=== PATIENT | male | born 1955 | race Caucasian/White ===

== ENCOUNTER 2020-04-27 19:02 | Emergency (ER) | payer MEDICARE, MEDICAID ==
--- NOTE | 2020-04-27 20:30 | EDM.PDOCBH ---
ED HPI GENERAL MEDICAL PROBLEM - General Stated Complaint: MEDICATION Time Seen by Provider: 04/27/20 20:30 Source of Information: Reports: Patient History Limitations: Reports: No Limitations - History of Present Illness INITIAL COMMENTS - FREE TEXT/NARRATIVE: 65-year-old male who reports that he has had long-standing problems with anxiety and depression and in February he reports that he has been feeling rather depressed about his medical condition begin (he has leg weakness and there was some concern that he had had a stroke but the weakness is of unclear etiology) and apparently he's been seen by a psychiatrist in [place] is initially placed on Lexapro about the middle to end of March and he reports that after one day he was feeling very agitated and shaky and that medication was stopped and then on 04/17/2020, he was placed on Zoloft and after 3 days of that medication he was feeling more agitated and was not sleeping well and he stopped that medication as well. He has been on Ativan twice daily for anxiety and he reports that that has helped his anxiety but he still feels that his anxiety is not really controlled completely and he is having trouble sleeping and has been having more and more depression. Today, he reports that he begin to thoughts of wanting to harm himself and he was concerned that he might do something to harm himself. He does not have a definite plan. But this scared him quite a bit. He comes to the emergency department from the [facility] because he wants cynthia into control his depression. He feels that he has "hit rock chanelle ttom" and he feels hopeless and lost. The thoughts of wanting to harm himself had progressively worsened through the day today. He did not do anything to harm himself today. He denies any pain at present. He rates his pain as a 0/10. He has had no fever. No nausea or vomiting. No cough or nasal congestion. No sore throat. There are no other associated signs or symptoms. There are no other modifying factors. Onset: Other (Ongoing problems with anxiety for some time and depression for 2-3 months. Feels that he has "hit rock bottom" today.) Duration: Getting Worse (2-3 months.) Location: Reports: Other (Not applicable.) Quality: Reports: Other (Not applicable.) Improves with: Reports: None Worsens with: Reports: None Context: Reports: Other (As above.) Associated Symptoms: Reports: No Other Symptoms Treatments PODIATRIST ORTHOPEDIC: Reports: Other (see below) (Nothing.) - Related Data Allergies Allergy/AdvReac Type Severity Reaction Status Date / Time No Known Allergies Allergy Verified 04/27/20 21:14 Home Meds: Home Meds LORazepam [Ativan] 0.5 mg PO BID PRN 04/27/20 [History] amLODIPine [Norvasc] 7.5 mg PO DAILY 04/27/20 [History] traZODone 50 mg PO DAILY PRN 04/27/20 [History] Past Medical History Cardiovascular History: Reports: Hypertension Genitourinary History: Reports: BPH Neurological History: Reports: Other (See Below) (Leg weakness of unclear etiology. Extensive workup has been performed and is being performed for this now.) Psychiatric History: Reports: Anxiety, Depression - Past Surgical History HEENT Surgical History: Reports: Tonsillectomy Male Surgical History: Reports: TURP-Transurethral Resection of Prostate Social & Family History - Tobacco Use Smoking Status *Q: Unknown Ever Smoked (Nonsmoker.) - Alcohol Use Alcohol Use History: Yes Alcohol Use Frequency: Rarely - Recreational Drug Use Recreational Drug Use: No - Living Situation & Occupation Living situation: Reports: Assisted Living Occupation: Disabled Social History Comment: Lives in the assisted living [facility] ED [facility] GENERAL - Review of Systems Review Of Systems: See Below Constitutional: Reports: No Symptoms HEENT: Reports: No Symptoms Respiratory: Reports: No Symptoms Cardiovascular: Reports: No Symptoms Endocrine: Reports: No Symptoms GI/Abdominal: Reports: No Symptoms : Reports: No Symptoms Musculoskeletal: Reports: No Symptoms Skin: Reports: No Symptoms Neurological: Reports: Weakness (In both legs of unclear etiology.) Psychiatric: Reports: Anxiety, Depression, Suicidal Ideation. Denies: Hallucinations Hematologic/Lymphatic: Reports: No Symptoms Immunologic: Reports: No Symptoms ED EXAM, BEHAVIORAL HEALTH - Physical Exam Exam: See Below Exam Limited By: No Limitations General Appearance: Alert, WD/WN, Anxious, Moderate Distress (Appears depressed.) Eye Exam: Bilateral Eye: EOMI, PERRL Ears: Normal External Exam, Hearing Grossly Normal Nose: Normal Inspection, Normal Mucosa, No Blood Throat/Mouth: Normal Oropharynx, Normal Voice, No Airway Compromise Head: Atraumatic, Normocephalic Neck: Normal Inspection, Supple, Non-Tender, Full Range of Motion Respiratory/Chest: No Respiratory Distress, Lungs Clear, Normal Breath Sounds, No Accessory Muscle Use, Chest Non-Tender Cardiovascular: Normal Peripheral Pulses, Regular Rate, Rhythm, No Murmur GI/Abdominal: Normal Bowel Sounds, Soft, Non-Tender, No Mass Back Exam: Normal Inspection, Full Range of Motion Extremities: Normal Inspection, Normal Range of Motion, Non-Tender, No Pedal Edema, Normal Capillary Refill Neurological: Alert, CN II-XII Intact, Normal Cognition, Oriented x 3, Other (Generalized bilateral lower extremity weakness he is able to move his legs they appear symmetric but just weak.) Psychiatric: Alert, Depressed Mood, Flat Affect, Suicidal Thoughts (But no plan.) Skin Exam: Warm, Dry, Intact, Normal color, No rash COURSE, BEHAVIORAL HEALTH COMP - Course Vital Signs: Last Vital Signs Temp 36.9 C 04/28/20 08:05 Pulse 96 04/28/20 08:05 Resp 17 04/28/20 08:05 BP 154/86 H 04/28/20 08:05 Pulse Ox 98 04/28/20 08:05 Orders, Labs, Meds: Laboratory Tests 04/27/20 04/27/20 04/27/20 Range/Units 21:35 21:35 21:35 WBC 8.6 (4.5-12.0) X10-3/uL RBC 4.94 (4.30-5.75) x10(6)uL Hgb 15.9 (13.5-17.8) g/dL Hct 46.2 (30.0-51.3) % MCV 93.6 (80-96) fL MCH 32.1 (27.7-33.6) pg MCHC 34.3 (32.2-35.4) g/dL RDW 12.1 (11.5-15.5) % Plt Count 384 H (125-369) X10(3)uL MPV 6.8 L (7.4-10.4) fL Neut % (Auto) 63.6 (46-82) % Lymph % (Auto) 24.6 (13-37) % Lawrence % (Auto) 9.1 (4-12) % Eos % (Auto) 2 (1.0-5.0) % Baso % (Auto) 1 (0-2) % Neut # (Auto) 5.5 (1.6-8.3) # Lymph # (Auto) 2.1 (0.6-5.0) # Lawrence # (Auto) 0.8 (0.0-1.3) # Eos # (Auto) 0.2 (0.0-0.8) # Baso # (Auto) 0.0 (0.0-0.2) # Sodium 137 (135-145) mmol/L Potassium 3.4 L (3.5-5.3) mmol/L Chloride 99 L (100-110) mmol/L Carbon Dioxide 31 (21-32) mmol/L BUN 13 (7-18) mg/dL Creatinine 0.8 (0.70-1.30) mg/dL Est Cr Clr Drug Dosing TNP Estimated GFR (MDRD) > 60 (>60) BUN/Creatinine Ratio 16.3 (9-20) Glucose 105 (80-116) mg/dL Calcium 9.1 (8.6-10.2) mg/dL Magnesium (1.8-2.5) mg/dL Total Bilirubin 0.3 (0.1-1.3) mg/dL AST 14 (5-25) IU/L ALT 32 (12-36) U/L Alkaline Phosphatase 62 (56-112) IU/L Total Protein 7.9 (6.0-8.0) g/dL Albumin 3.9 (3.2-4.6) g/dL Globulin 4.0 g/dL Albumin/Globulin Ratio 1.0 TSH, Ultra Sensitive (0.36-3.74) IU/mL Salicylates < 2.8 L (<2.8) mg/dL Urine Opiates Screen Negative (NEGATIVE) Ur Oxycodone Screen Negative (NEGATIVE) Ur Propoxyphene Screen Negative (NEGATIVE) Acetaminophen < 2 L (<2) ug/mL Ur Barbituates Screen Negative (NEGATIVE) Ur Tricyclics Screen Negative (NEGATIVE) Ur Phencyclidine Scrn Negative (NEGATIVE) Ur Amphetamine Screen Negative (NEGATIVE) Urine MDMA Screen Negative (NEGATIVE) U Benzodiazepines Scrn Positive H (NEGATIVE) U Cocaine Metab Screen Negative (NEGATIVE) U Marijuana (THC) Screen Negative (NEGATIVE) Ethyl Alcohol (<0.03) % SARS-CoV-2 RNA (JESUS MANUEL) (NEGATIVE) 04/27/20 04/27/20 04/27/20 Range/Units 21:35 21:35 23:53 WBC (4.5-12.0) X10-3/uL RBC (4.30-5.75) x10(6)uL Hgb (13.5-17.8) g/dL Hct (30.0-51.3) % MCV (80-96) fL MCH (27.7-33.6) pg MCHC (32.2-35.4) g/dL RDW (11.5-15.5) % Plt Count (125-369) X10(3)uL MPV (7.4-10.4) fL Neut % (Auto) (46-82) % Lymph % (Auto) (13-37) % Lawrence % (Auto) (4-12) % Eos % (Auto) (1.0-5.0) % Baso % (Auto) (0-2) % Neut # (Auto) (1.6-8.3) # Lymph # (Auto) (0.6-5.0) # Lawrence # (Auto) (0.0-1.3) # Eos # (Auto) (0.0-0.8) # Baso # (Auto) (0.0-0.2) # Sodium (135-145) mmol/L Potassium (3.5-5.3) mmol/L Chloride (100-110) mmol/L Carbon Dioxide (21-32) mmol/L BUN (7-18) mg/dL Creatinine (0.70-1.30) mg/dL Est Cr Clr Drug Dosing Estimated GFR (MDRD) (>60) BUN/Creatinine Ratio (9-20) Glucose (80-116) mg/dL Calcium (8.6-10.2) mg/dL Magnesium 2.3 (1.8-2.5) mg/dL Total Bilirubin (0.1-1.3) mg/dL AST (5-25) IU/L ALT (12-36) U/L Alkaline Phosphatase (56-112) IU/L Total Protein (6.0-8.0) g/dL Albumin (3.2-4.6) g/dL Globulin g/dL Albumin/Globulin Ratio TSH, Ultra Sensitive 1.91 (0.36-3.74) IU/mL Salicylates (<2.8) mg/dL Urine Opiates Screen (NEGATIVE) Ur Oxycodone Screen (NEGATIVE) Ur Propoxyphene Screen (NEGATIVE) Acetaminophen (<2) ug/mL Ur Barbituates Screen (NEGATIVE) Ur Tricyclics Screen (NEGATIVE) Ur Phencyclidine Scrn (NEGATIVE) Ur Amphetamine Screen (NEGATIVE) Urine MDMA Screen (NEGATIVE) U Benzodiazepines Scrn (NEGATIVE) U Cocaine Metab Screen (NEGATIVE) U Marijuana (THC) Screen (NEGATIVE) Ethyl Alcohol < 0.03 (<0.03) % SARS-CoV-2 RNA (JESUS MANUEL) Negative (NEGATIVE) Re-Assessment/Re-Exam: 04/27/2020, 11 PM: The patient's blood tests are all reassuringly normal. His urine drug x-ray was positive for benzos which she is taking. The patient is quite depressed. He has told me that he has an having increasing suicidal thoughts and they have been worsening through the day. Although he does not have a definite plan, he is quite afraid that he would begin to feel hopeless enough that he would want to kill himself and he wants help. He is cooperative and agreeable to for help. I feel that he will need acute psychiatric inpatient hospitalization for acute intervention. We will begin trying to find placement for the patient. 04/28/2020, 3:25 AM: The patient has been presented to multiple psychiatric inpatient facilities and Dr. Lucrecia Arreola at the [facility] in [place] has agreed to accept the patient. The patient will be transported via ambulance to the [facility] in [place] for direct admission. The patient will need transport with a general medical practitioner because of his suicidal ideation and the danger that he poses to himself and the potential for elopement. 04/28/2020, 7:45 AM: Patient has remained stable. Transport has been arranged through [facility] ambulance service and they are supposed to arrive at any time to transport the patient. The patient remains calm and cooperative and is still wanting help and agreeable to the transfer to the [facility] in [place]. Medical Clearance: 04/27/20 23:00: The patient is medically cleared for psychiatric admission. Departure - Departure Time of Disposition: 08:13 Disposition: DC/Tfer to Psych Hosp/Unit 65 Clinical Impression: Suicidal ideation, Anxiety Major depression Qualifiers: Major depression recurrence: unspecified whether recurrent Active/Remission status: currently active Major depression episode severity: severe Psychotic features: without psychotic features Qualified Code(s): F32.2 - Major depressive disorder, single episode, severe without psychotic features - Discharge Information Referrals: Aracely Schneider [employer] [employer] [facility] [Primary Care Provider] - Forms: ED Department Discharge Sepsis Event Note (ED) - Focused Exam Vital Signs: Vital Signs Temp Pulse Resp BP Pulse Ox 04/28/20 08:05 36.9 C 96 17 154/86 H 98 04/28/20 01:26 85 16 143/86 H 100
[2020-04-27 22:10] LABS: ACETAMINOPHEN < 2 ug/mL (<2)
== END 2020-04-28 08:13 ==
LOC: FB.ED 19:02
DX: F32.2 Major depressive disorder, single episode, severe without psychotic features (principal); F41.9 Anxiety disorder, unspecified; I10 Essential (primary) hypertension; Z20.828 Contact with and (suspected) exposure to other viral communicable diseases; Z79.899 Other long term (current) drug therapy
CPT/HCPCS: 36415; 80053; 80305; 80307; 83735; 84443; 85025; 99284; 99285; U0002

== ENCOUNTER 2020-06-04 19:02 | Emergency (ER) | payer MEDICARE, MEDICAID ==
--- NOTE | 2020-06-04 19:54 | EDM.PDOCBH ---
ED HPI GENERAL MEDICAL PROBLEM - General Stated Complaint: SUICIDAL Time Seen by Provider: 06/04/20 19:30 Source of Information: Reports: Patient History Limitations: Reports: No Limitations - History of Present Illness INITIAL COMMENTS - FREE TEXT/NARRATIVE: Patient presented to the ED because of suicidal ideation. He crawl from his apartment at 0130 am and then stayed outside until 6 am. He said he i ntentionally did it because he just want it to be over. He has a history of anxiety and depression and it has been getting worse recently because of his bilateral lower extremity weakness. He was diagnosed with Myasthenia Gravis in the past and was seen by a neurologist at [place] but he never had a follow up. - Related Data Allergies Allergy/AdvReac Type Severity Reaction Status Date / Time No Known Allergies Allergy Verified 04/27/20 21:14 Home Meds: Home Meds LORazepam [Ativan] 0.5 mg PO BID PRN 04/27/20 [History] amLODIPine [Norvasc] 7.5 mg PO DAILY 04/27/20 [History] traZODone 50 mg PO DAILY PRN 04/27/20 [History] Past Medical History Cardiovascular History: Reports: Hypertension Genitourinary History: Reports: BPH Neurological History: Reports: Other (See Below) (Leg weakness of unclear etiology. Extensive workup has been performed and is being performed for this now.) Psychiatric History: Reports: Anxiety, Depression - Past Surgical History HEENT Surgical History: Reports: Tonsillectomy Male Surgical History: Reports: TURP-Transurethral Resection of Prostate Social & Family History - Living Situation & Occupation Living situation: Reports: Assisted Living Occupation: Disabled ED ROS GENERAL - Review of Systems Review Of Systems: See Below Constitutional: Reports: Weakness HEENT: Reports: No Symptoms Respiratory: Reports: No Symptoms Cardiovascular: Reports: No Symptoms Endocrine: Reports: No Symptoms GI/Abdominal: Reports: No Symptoms : Reports: No Symptoms Musculoskeletal: Reports: No Symptoms Skin: Reports: Other Neurological: Reports: No Symptoms (bruising -both knees) Psychiatric: Reports: Anxiety, Depression Hematologic/Lymphatic: Reports: No Symptoms ED EXAM, BEHAVIORAL HEALTH - Physical Exam Exam: See Below Exam Limited By: No Limitations General Appearance: Alert, No Apparent Distress Ears: Normal External Exam, Normal Canal Nose: Normal Inspection, Normal Mucosa, No Blood Throat/Mouth: Normal Inspection, Normal Lips Head: Atraumatic, Normocephalic Neck: Normal Inspection, Supple, Non-Tender Respiratory/Chest: No Respiratory Distress, Lungs Clear, Normal Breath Sounds Cardiovascular: Normal Peripheral Pulses, Regular Rate, Rhythm, No Edema, No Gallop GI/Abdominal: Normal Bowel Sounds, Soft, Non-Tender, No Organomegaly Back Exam: Normal Inspection, Full Range of Motion Extremities: Normal Inspection, Normal Range of Motion Neurological: Alert, No Motor/Sensory Deficits, Oriented x 3 Psychiatric: Alert, Normal Cognition, Oriented, Depressed Mood Skin Exam: Other COURSE, BEHAVIORAL HEALTH COMP - Course Orders, Labs, Meds: Active Orders 24 hr Category Date Time Status ACETAMINOPHEN [CHEM] Stat Lab 06/04/20 19:34 Received CBC WITH AUTO DIFF [HEME] Stat Lab 06/04/20 19:34 Received COMPREHENSIVE METABOLIC PN,CMP [CHEM] Stat Lab 06/04/20 19:34 Received DRUG SCREEN, URINE ALERE [URCHEM] Stat Lab 06/04/20 19:13 Ordered ETHANOL BLOOD MEDICAL [CHEM] Stat Lab 06/04/20 19:34 Received SALICYLATE [CHEM] Stat Lab 06/04/20 19:34 Received THYROXINE (T4) FREE, DIRECT, S Stat Lab 06/04/20 19:34 Received TSH ULTRASENSITIVE [CHEM] Stat Lab 06/04/20 19:34 Received UA W/MICROSCOPIC [URIN] Stat Lab 06/04/20 19:14 Ordered Departure - Departure Time of Disposition: 18:00 Disposition: DC/Tfer to Psych Hosp/Unit 65 Condition: Good Clinical Impression: Depression with suicidal ideation - Discharge Information - My Orders Last 24 Hours: My Active Orders 06/04/20 19:13 DRUG SCREEN, URINE ALERE [URCHEM] Stat 06/04/20 19:14 UA W/MICROSCOPIC [URIN] Stat 06/04/20 19:34 ACETAMINOPHEN [CHEM] Stat CBC WITH AUTO DIFF [HEME] Stat COMPREHENSIVE METABOLIC PN,CMP [CHEM] Stat ETHANOL BLOOD MEDICAL [CHEM] Stat SALICYLATE [CHEM] Stat THYROXINE (T4) FREE, DIRECT, S Stat TSH ULTRASENSITIVE [CHEM] Stat - Assessment/Plan Last 24 Hours: My Active Orders 06/04/20 19:13 DRUG SCREEN, URINE ALERE [URCHEM] Stat 06/04/20 19:14 UA W/MICROSCOPIC [URIN] Stat 06/04/20 19:34 ACETAMINOPHEN [CHEM] Stat CBC WITH AUTO DIFF [HEME] Stat COMPREHENSIVE METABOLIC PN,CMP [CHEM] Stat ETHANOL BLOOD MEDICAL [CHEM] Stat SALICYLATE [CHEM] Stat THYROXINE (T4) FREE, DIRECT, S Stat TSH ULTRASENSITIVE [CHEM] Stat
[2020-06-04 19:59] LABS: ACETAMINOPHEN < 2 ug/mL (<2)
[2020-06-04] MEDS ORDERED: LORazepam 0.5 MG Tab PO ONE (22:37)
[2020-06-04] MEDS ORDERED: hydrOXYzine HCl 25 MG Tab PO ONE (22:39)
[2020-06-04] MEDS ORDERED: Mirtazapine 15 MG Tab ONE (22:59)
[2020-06-05] MEDS ORDERED: Mirtazapine 15 MG Tab PO SCH (21:00)
== END 2020-06-05 08:35 ==
LOC: FB.ED 19:02
DX: F32.9 Major depressive disorder, single episode, unspecified (principal); I10 Essential (primary) hypertension; Z79.899 Other long term (current) drug therapy
CPT/HCPCS: 36415; 80053; 80305; 80307; 81001; 84439; 84443; 85025; 99285; A9270